=== PATIENT | male | born 1975 | race Caucasian/White ===

== ENCOUNTER 2021-07-27 13:33 | Outpatient (REF) | payer MEDICAID, OTHER, SELFPAY ==
--- NOTE | ~2021-07-27 | US_ITS ---
EXAMINATION: US SOFT TISSUE NECK CLINICAL INFORMATION: Enlarged lymph nodes COMPARISON: None TECHNIQUE: Ultrasound of the neck soft tissues is performed with high- frequency abel-scale imaging and color Doppler. FINDINGS: The visualized thyroid is diffusely heterogeneous. NECK SOFT TISSUES: Scattered architecturally normal nodes are present. The nodes show normal fatty hilus, normal cortical thickness, and no cystic change or calcification. No abnormal color flow. The largest lymph node in the right neck is a 1B node measuring 1.2 cm in long axis. The largest lymph node in the left neck is a level III 1.3 cm lymph node US/US soft tiss head and/or neck IMPRESSION: 1. Scattered morphologically normal-appearing lymph nodes in the bilateral neck, the largest on the right measures 1.2 cm and the largest on the left measures 1.3 cm in long axis. 2. Diffusely heterogeneous thyroid gland.
== END 2021-07-27 13:34 | disposition home or self-care (01) ==
LOC: HO.HMGCX 13:33
PROVIDERS: Absent Provider Internal Medicine Geriatric Medicine; PCP Internal Medicine Geriatric Medicine; Visit Provider Nurse Practitioner Primary Care
DX: R59.9 Enlarged lymph nodes, unspecified (principal)
CPT/HCPCS: 76536

== ENCOUNTER 2022-02-08 15:13 | Outpatient (REF) | payer MEDICAID, OTHER, SELFPAY ==
--- NOTE | ~2022-02-08 | XR_ITS ---
EXAMINATION: XR ELBOW, LEFT CLINICAL INFORMATION: Pain with range of motion. COMPARISON: None TECHNIQUE: AP, lateral, and oblique views of the left elbow. FINDINGS: Normal bony mineralization. No fracture, dislocation, destructive process, or capsular effusion. No joint narrowing, erosive changes, or chondrocalcinosis. Minute olecranon spur suggested on lateral view. XR/XR elbow LT min 3V IMPRESSION: -Tiny olecranon spur.
--- NOTE | ~2022-02-08 | XR_ITS ---
EXAMINATION: XR WRIST, LEFT CLINICAL INFORMATION: Pain with range of motion COMPARISON: None TECHNIQUE: The left wrist is imaged in 4 views. FINDINGS: Normal bony mineralization. Ulnar variance is neutral. No acute or healing fracture, dislocation, destructive process. The AP view shows widening at the articulation between the scaphoid and lunate which may suggest laxity or tear of the scapholunate ligament. There are mild degenerative changes first carpometacarpal joint. Mild dorsal spurring from the lunate. No erosive changes or chondrocalcinosis. XR/XR wrist LT min 3V IMPRESSION: -Mild degenerative changes first carpometacarpal joint. -Mild widening between lunate and scaphoid on AP view which may suggest laxity or tear of the scapholunate ligament.
== END 2022-02-08 15:14 | disposition home or self-care (01) ==
LOC: HO.XRAY 15:13
PROVIDERS: Absent Provider Internal Medicine Geriatric Medicine; PCP Internal Medicine Geriatric Medicine; Visit Provider Registered Nurse Community Health
DX: M25.522 Pain in left elbow (principal); M25.532 Pain in left wrist
CPT/HCPCS: 73080; 73110

== ENCOUNTER 2024-05-26 16:00 | Outpatient (REF) | payer MEDICAID, OTHER, SELFPAY ==
[2024-05-26 18:02] LABS: MANUAL DIFF FLAG NO
[2024-05-26 18:07] LABS: Basophils Absolute Auto 0.1 X10*3/uL (0.0-0.2); Basophils Percent Auto 0.8 % (0-2); Eosinophils Absolute Auto 0.3 X10*3/uL (0.0-0.4); Eosinophils Percent Auto 4.8 % (0-4); Hematocrit 41.8 % (42.0-52.0); Hemoglobin 14.1 g/dl (14.0-18.0); Imm Gran Abs Auto 0.08 X10*3/uL (0.00-0.03); Imm Gran Pct Auto 1.3 % (0.0-0.4); Lymphocytes Absolute Auto 1.9 X10*3/uL (1.2-4.9); Lymphocytes Percent Auto 30.6 % (20-40); Mean Corpuscular HGB Conc 33.7 g/dl (31.0-36.0); Mean Corpuscular Hemoglobin 28.2 pg (27.0-33.0); Mean Corpuscular Volume 83.6 fL (80.0-98.0); Mean Platelet Volume 9.8 fL (9.4-12.4); Monocytes Absolute Auto 0.6 X10*3/uL (0.1-1.2); Neutrophils Absolute Auto 3.3 x10*3/uL (2.0-8.3); Neutrophils Percent Auto 52.5 % (45-73); Platelet Count 297 X10*3/uL (160-400); White Blood Count 6.3 X10*3/uL (4.8-10.8)
[2024-05-26 18:23] LABS: Anion Gap 13 (12-20); Blood Urea Nitrogen 11 mg/dL (9-16); Calcium 9.4 mg/dL (8.4-10.2); Carbon Dioxide 28 mmol/L (22-29); Chloride 103 mmol/L (96-108); Estimated Glomerular Filt Rate > 60; Glucose Random 102 mg/dL (60-115); Sodium 140 mmol/L (135-145)
[2024-05-26 18:42] LABS: TSH reflex Free T4 3.06 uIU/mL (0.32-4.0)
[2024-05-26 19:00] LABS: Vitamin B12 313 pg/mL (200-900)
== END 2024-05-26 16:01 | disposition home or self-care (01) ==
LOC: HO.HHCL 16:00
PROVIDERS: Visit Provider Nurse Practitioner
DX: R53.81 Other malaise (principal)
CPT/HCPCS: 36415; 80048; 82607; 82746; 84443; 85025

== ENCOUNTER → 2024-08-19 20:30 | Outpatient (REF) | payer MEDICAID, OTHER, SELFPAY | LOC: HO.SL 20:30 | PROVIDERS: PCP Internal Medicine Geriatric Medicine; Visit Provider Internal Medicine | DX: Z13.89 Encounter for screening for other disorder (principal) ==

== ENCOUNTER → 2024-09-24 19:00 | Outpatient (BNV) | payer SELFPAY | PROVIDERS: PCP Internal Medicine; Visit Provider Internal Medicine | DX: G47.33 Obstructive sleep apnea (adult) (pediatric) (principal) | CPT/HCPCS: 95811 ==

== ENCOUNTER → 2024-09-24 20:30 | Outpatient (REF) | payer MEDICAID, OTHER, SELFPAY | LOC: HO.SL 20:30 | PROVIDERS: PCP Internal Medicine; Visit Provider Internal Medicine | DX: G47.33 Obstructive sleep apnea (adult) (pediatric) (principal) | CPT/HCPCS: 95811 ==